=== PATIENT | male | born 1980 | race Caucasian/White ===

== ENCOUNTER 2020-01-18 21:04 | Emergency (ER) | payer OTHER ==
[~2020-01-18] VITALS: Ht 177.8 cm; Wt 74.8 kg
[2020-01-18 21:31] VITALS: BP 112/69
== END 2020-01-18 21:55 | disposition home or self-care (01) ==
LOC: ER 21:07
DX: S50.861A Insect bite (nonvenomous) of right forearm, initial encounter (principal); L03.113 Cellulitis of right upper limb; F17.200 Nicotine dependence, unspecified, uncomplicated; Z60.2 Problems related to living alone; W57.XXXA Bitten or stung by nonvenomous insect and other nonvenomous arthropods, initial encounter; Y93.89 Activity, other specified; Y92.89 Other specified places as the place of occurrence of the external cause; Y99.8 Other external cause status

== ENCOUNTER 2021-01-06 23:37 | Emergency (ER) | payer OTHER ==
[~2021-01-06] VITALS: Ht 177.8 cm; Wt 75.7 kg
[2021-01-06 23:55] VITALS: BP 129/69
[2021-01-07] MEDS ORDERED: SULFAMETH/TRIMETH 800/160 MG 1 UDTAB TABLET PO ONE
[2021-01-07] MEDS ORDERED: SULF1TAB48 PO
[2021-01-07] MEDS ORDERED: SULFAMETH/TRIMETH 800/160 MG 1 UDTAB TABLET ONE (00:07)
== END 2021-01-07 00:12 | disposition home or self-care (01) ==
LOC: ER 23:57
DX: L98.9 Disorder of the skin and subcutaneous tissue, unspecified (principal); L03.113 Cellulitis of right upper limb; F17.210 Nicotine dependence, cigarettes, uncomplicated; Z60.2 Problems related to living alone; Z79.899 Other long term (current) drug therapy

== ENCOUNTER 2022-04-10 06:32 | Emergency (ER) | payer OTHER ==
[~2022-04-10] VITALS: Ht 177.8 cm; Wt 77.6 kg
[~2022-04-10 06:32] MED LIST: SULF1TAB48 PO
[2022-04-10 06:45] VITALS: BP 139/83
[2022-04-10] MEDS ORDERED: HYDR-4209 PO (07:24)
[2022-04-10] MEDS ORDERED: HYDROCODONE/APAP 5/325MG TABLET PO ONE (07:30)
[2022-04-10] MEDS ORDERED: HYDROCODONE/APAP 5/325MG TABLET ONE (07:38)
--- NOTE | 2022-04-10 07:42 | NUR ---
Patient discharged to home in stable condition. Written and verbal after care instructions given. Patient verbalizes understanding of instruction.
--- NOTE | 2022-04-10 07:42 | NUR ---
NORCO PO GIVEN INDICATED, JEANCARLOS WELL.
== END 2022-04-10 07:44 | disposition home or self-care (01) ==
LOC: ER 06:40
DX: S02.5XXA Fracture of tooth (traumatic), initial encounter for closed fracture (principal); Z91.013 Allergy to seafood; F17.200 Nicotine dependence, unspecified, uncomplicated; Z60.2 Problems related to living alone; Z79.899 Other long term (current) drug therapy; X58.XXXA Exposure to other specified factors, initial encounter; Y93.89 Activity, other specified; Y92.89 Other specified places as the place of occurrence of the external cause; Y99.8 Other external cause status

== ENCOUNTER 2022-12-01 18:44 | Emergency (ER) | payer OTHER ==
[~2022-12-01] VITALS: Ht 177.8 cm; Wt 77.1 kg
[~2022-12-01 18:44] MED LIST changes: +HYDR-4209 PO
[2022-12-01 19:58] VITALS: BP 120/65; TEMP 98.5
[2022-12-01] MEDS ORDERED: CEPH500T PO (20:07)
[2022-12-01] MEDS ORDERED: IBUP-1953 PO (20:07)
[2022-12-01] MEDS ORDERED: SULF1TAB48 PO (20:07)
[2022-12-01 20:14] VITALS: O2SAT 98
== END 2022-12-01 20:14 | disposition home or self-care (01) ==
LOC: ER 18:50
DX: L03.113 Cellulitis of right upper limb (principal); F17.200 Nicotine dependence, unspecified, uncomplicated; Z91.013 Allergy to seafood; Z60.2 Problems related to living alone